=== PATIENT | male | born 1955 | race Caucasian/White ===

== ENCOUNTER 2024-12-03 06:20 | Day surgery (SDC) | payer MEDICARE, SELFPAY ==
[2024-12-03 14:00] LABS: Glucose - Point of Care 117 mg/dl (70-99)
== END 2024-12-03 15:08 | disposition home or self-care (01) ==
LOC: GI 06:20
PROVIDERS: ATTENDING PHYSICIAN Internal Medicine Gastroenterology; FAMILY PHYSICIAN Family Medicine
DX: Z12.11 Encounter for screening for malignant neoplasm of colon (principal); K64.8 Other hemorrhoids
CPT/HCPCS: G0105; 82962